=== PATIENT | male | born 1980 | race Caucasian/White ===

== ENCOUNTER → 2021-09-15 16:02 | Outpatient (BNVA) | payer OTHER, SELFPAY | PROVIDERS: Visit Provider Nurse Practitioner Family | DX: J45.909 Unspecified asthma, uncomplicated (principal); M79.89 Other specified soft tissue disorders; R06.02 Shortness of breath; G47.10 Hypersomnia, unspecified; R06.83 Snoring | CPT/HCPCS: 71046; 80053; 80061; 84443; 85025 ==

== ENCOUNTER → 2021-10-10 09:07 | Outpatient (BNVA) | payer OTHER, SELFPAY | PROVIDERS: PCP Family Medicine; Visit Provider Family Medicine | DX: I10 Essential (primary) hypertension (principal); R73.09 Other abnormal glucose; R60.9 Edema, unspecified; F19.939 Other psychoactive substance use, unspecified with withdrawal, unspecified; F41.9 Anxiety disorder, unspecified | CPT/HCPCS: 80048; 83036 ==

== ENCOUNTER → 2022-02-12 12:30 | Outpatient (BNVA) | payer OTHER, SELFPAY | PROVIDERS: PCP Family Medicine; Visit Provider Family Medicine | DX: R53.83 Other fatigue (principal); F41.9 Anxiety disorder, unspecified | CPT/HCPCS: 82607; 84403; 84443 ==

== ENCOUNTER → 2022-03-09 14:07 | Outpatient (BNVA) | payer OTHER, SELFPAY | PROVIDERS: PCP Family Medicine; Visit Provider Family Medicine | DX: M79.671 Pain in right foot (principal); M79.672 Pain in left foot | CPT/HCPCS: 73650 ==

== ENCOUNTER → 2022-08-31 11:50 | Outpatient (BNVA) | payer SELFPAY | PROVIDERS: PCP Family Medicine; Visit Provider Family Medicine | DX: R79.89 Other specified abnormal findings of blood chemistry (principal); I10 Essential (primary) hypertension; F41.9 Anxiety disorder, unspecified | CPT/HCPCS: 80053; 80061; 84403; 84443; 85025 ==

== ENCOUNTER → 2023-02-19 09:33 | Outpatient (BNVA) | payer OTHER, SELFPAY | PROVIDERS: PCP Family Medicine; Visit Provider Nurse Practitioner Family | DX: M54.50 Low back pain, unspecified (principal) | CPT/HCPCS: 72100 ==

== ENCOUNTER 2024-05-12 16:08 | Inpatient (IN) | payer OTHER, BC, MEDICAID, SELFPAY ==
[2024-05-12 16:09] VITALS: BP 145/94; PULSE 106; RESP 16; TEMP 36.7; O2SAT 96; BMI 38.0
--- NOTE | 2024-05-12 16:12 | ECG_ITS ---
[facility] Test Date: 2024-05-12 Pat Name: Thompson Durbin Department: Room: Gender: Male Woods Boss: : 1980 Requested By: Aaron Coto Order Number: [id number] Pascual MD: PASCUAL GARCIA Measurements Intervals [place] Rate: 93 P: 7 AR: 171 QRS: -13 QRSD: 77 T: 14 QT: 323 QTc: 404 Interpretive Statements SINUS RHYTHM LOW QRS VOLTAGE IN PRECORDIAL LEADS [QRS DEFLECTION < 1.0 mV IN CHEST LEADS] POSSIBLE RIGHT VENTRICULAR CONDUCTION DELAY [RSR (QR) IN V1/V2] POSSIBLE INFERIOR MYOCARDIAL INFARCTION , PROBABLY OLD [30 ms Q WAVE IN II/aVF] No previous ECG available for comparison Electronically Signed On 05-21-2024 21:38:08 CDT by PASCUAL GARCIA [email or web address]
[2024-05-12 16:31] LABS: Bacteria Urine None Seen /hpf; Hyaline Casts Urine 0-4 /lpf; RBC Urine 0-2 /hpf (0-2); Squamous Epithelial Cell Urine 0-5 /hpf (0-5); WBC Urine 0-5 /hpf (0-5)
[2024-05-12 16:35] LABS: Basophils % 0.5 %; Eosinophils # 0.7 10^3/uL (0.0-0.8); Hematocrit 42.9 % (37-53); Lymphocytes # 1.7 10^3/uL (0.8-4.8); Lymphocytes % 28.6 %; Mean Corpuscular HGB Conc 33.6 g/dL (30-55); Mean Corpuscular Volume 92.5 fl (82-101); Mean Platelet Volume 10.6 fL (7.4-10.4); Monocytes # 0.4 10^3/uL (0.2-0.9); Monocytes % 6.9 %; Neutrophils # 3.05 10^3/uL (1.8-7.7); Neutrophils % 51.7 %; Nucleated Red Blood Cells % 0 %; Platelet Count 169 10^3/cmm (157-399); Red Blood Count 4.64 10^6/uL (3.85-5.65); Red Cell Distribution Width 12.3 % (12.1-15.1); White Blood Count 5.91 10^3/uL (3.29-11.43)
--- NOTE | 2024-05-12 16:37 | PC.NURSE ---
96 hour hold rights read and reviewed with patient. Aaron from security present during reading of rights. Patient verbalized understandings and copy of rights given to patient.
[2024-05-12 16:45] LABS: Add Urine Microscopic? YES; Bilirubin Urine Neg (Negative); Blood Urine Trace (Negative); Glucose Urine UA Norm (Normal); Ketones Urine Negative (Negative); Leukocyte Esterase Urine Negative (Negative); Nitrate Urine Negative (Negative); Protein Urine Neg (Negative); Specific Gravity, Urine 1.005 (1.005-1.030); Urine Appearance Clear (CLEAR); Urine Color Yellow (Yellow); Urobilinogen Urine Neg (Negative); pH Urine 6.5 (5-7)
[2024-05-12 16:46] LABS: Amphetamines Screen Urine Negative (Negative); Barbiturates Screen Urine Negative (Negative); Benzodiazepines Screen Urine Positive (Negative); Cocaine Screen Urine Negative (Negative); Opiate Screen Urine Negative (Negative); PCP Screen Urine Negative (Negative); THC Screen Urine Negative (Negative)
[2024-05-12 17:01] LABS: Alanine Aminotransferase 26 U/L (0-41); Albumin Level 4.1 g/dL (3.5-5.2); Alkaline Phosphatase 68 U/L (40-130); Anion Gap 14.7 (5-19); Aspartate Amino Transferase 20 U/L (0-40); Blood Urea Nitrogen 7 mg/dL (6-20); Calcium 8.5 mg/dL (8.5-10.5); Carbon Dioxide 28 mmol/L (22-29); Chloride 103 mmol/L (98-107); Creatinine Clr Calc Pharmacy 129.3321; Globulin 3.1 g/dL (1.3-4.6); Glomerular Filtration Rate 92.1 mL/min (90-130); Glucose 136 mg/dL (65-115); Osmolality Calculated 294 mOsm/kg (285-295); Potassium 3.7 mmol/L (3.5-5.1); Sodium 142 mmol/L (136-145); Thyroid Stimulating Hormone 1.44 uIU/mL (0.27-4.20); Total Bilirubin 0.3 mg/dL (0.15-1.2); Total Protein 7.2 g/dL (6.6-8.7)
[2024-05-12 17:02] LABS: Acetaminophen < 5.0 ug/mL (10-30); Alcohol Level < 10 mg/dL (0-10); Salicylate < 0.3 mg/dL (3-10)
--- NOTE | 2024-05-12 17:03 | W.ED.PSYCHS ---
HPI - Psych General: Chief Complaint: Psychiatric Symptoms Stated Complaint: 96 History of Present Illness: 44-year-old male brought in on a 96-hour hold. Affidavit and support of application for assisted was filled out by Kanika Rubalcava APRN. She was mental health provider for the patient. There is a long affidavit which can be reference. Some highlights of the affidavit include I want to blow my head off. On 05/10/2024. Comment about a coworker ' respondent was an employee at local [employer], to which she recently walked out during his shift to never returned after what he endorsed is a significant event of conflict, to which staff members explain was a simple question answered moment. 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 ' Patient reportedly messaged CUSTOMER CARE VOICE CONSULTANT 14 messages today alone. CUSTOMER CARE VOICE CONSULTANT reports concern for 'his safety, the safety of [id number] children in the home, and the safety of others in the community.' Patient has allegedly had multiple substance in his urine drug screen in February as well as an absence of the Suboxone for which she was supposed to be taking and was prescribed. Patient had also reported he stopped his antidepressant and PTSD medication weeks ago. Patient tells me he stopped them just 2 days ago. Patient denies any drug use recently. Affidavit reports recent positive MDMA and cocaine in February. Patient denies alcohol abuse. Patient reports he sent all these messages because he was feeling manic . Patient currently denies suicidal ideation or homicidal ideation. He says that all of these comments were intrusive thoughts but not something he intended to act on. Associated symptoms: Reports depression; Deny auditory hallucinations, visual hallucinations, homicidal ideation or suicidal ideation Related Data Home Medications ?Medication ?Instructions ?Recorded ?Confirmed buprenorphine HCl 8 mg sublingual ea sublingual 08/31/22 09/01/23 tablet Previous Rx's ?Medication ?Instructions ?Recorded ondansetron 4 mg disintegrating 4 mg PO Q8H #20 tabs 01/28/23 tablet albuterol sulfate 90 mcg/actuation 2 puff inhalation Q6H PRN 04/30/23 aerosol inhaler shortness of breath or wheezing #8.5 grams lisinopril 30 mg tablet See Rx Instructions .Route 05/28/23 .COMPLEX #30 tabs omeprazole 40 mg capsule,delayed 40 mg PO DAILY #30 caps 05/28/23 release potassium chloride 10 mEq See Rx Instructions .Route 05/28/23 capsule,extended release .COMPLEX #30 caps testosterone cypionate 200 mg/mL 200 mg SUBCUT .monthly #1 mL 05/28/23 intramuscular oil (Depo-Testosterone) venlafaxine 75 mg capsule,extended 75 mg PO QAM #30 caps 07/23/23 release 24 hr (Effexor XR) diazepam 10 mg tablet (Valium) 10 mg PO BID PRN anxiety #60 tabs 10/07/23 furosemide 80 mg tablet 80 mg PO QAM #30 tabs 10/07/23 rizatriptan 10 mg tablet (Maxalt) 10 mg PO ONCE PRN migraine 10/07/23 headache #14 tabs diclofenac sodium 75 mg See Rx Instructions .Route 02/02/24 tablet,delayed release .COMPLEX #60 tabs metoprolol tartrate 100 mg tablet See Rx Instructions .Route 02/02/24 .COMPLEX #30 tabs Allergies Allergy/AdvReac Type Severity Reaction Status Date / Time bupropion (From Wellbutrin) Allergy Severe ADR-Seizure Verified 03/15/23 10:36 Review of Systems General: Reports: 10 or more systems reviewed and unremarkable except in HPI and below Const: Denies: fever(s), chills or body aches Eyes: Denies: change in vision ENMT: Denies: throat pain Card: Denies: chest pain, edema or syncope Resp: Denies: dyspnea or productive cough GI: Denies: abdominal pain, nausea, vomiting or diarrhea : Denies: flank pain, dysuria or urinary frequency Musc: Denies: neck pain, back pain, extremity pain or extremity swelling Skin/Breast: Denies: rash or erythema Neuro: Denies: headache(s), numbness in extremities, weakness in extremities, lack of coordination or difficulty walking Psych: Reports: anxiety, depression, mood swings and irritability; Denies: visual hallucinations, auditory hallucinations, tactile hallucinations, suicidal ideation or homicidal ideation PFSH ED PFSH: Medical History History of asthma Surgical History Hx of hand surgery left Social History Smoking and tobacco/nicotine status: current every day tobacco/nicotine user Second hand smoke exposure: No Alcohol intake: never Substance/Drug Use: never Adopted: No Caregiver/support person: No Lives independently: Yes Household members: family Housing: House Marital status: Single Number of children: 0 Highest education level completed: 9th Grade service: No Current occupational status: employed Physical Exam Const: COMMON NORMALS: no limitations, alert and well nourished EXAM LIMITATIONS: no altered mental status HENMT: COMMON NORMALS: normocephalic, atraumatic and external ears normal HEAD & SCALP: normocephalic and atraumatic EXTERNAL EAR: Yes external ears normal MOUTH: no muffled voice Eye: COMMON NORMALS: EOMs intact bilaterally, conjunctivae normal and no scleral icterus CONJUNCTIVA: Yes conjunctivae normal Neck/C-Spine: COMMON NORMALS: no JVD GENERAL: Yes normal visual inspection and Yes trachea midline Resp: COMMON NORMALS: normal respiratory effort, No use of accessory muscles and clear to auscultation bilaterally AUSCULTATION: clear to auscultation bilaterally Cardio: COMMON NORMALS: no JVD, regular rate and regular rhythm RATE: regular rate RHYTHM: regular rhythm Extremity: COMMON NORMALS: normal to inspection Neuro: COMMON NORMALS: moves all extremities, no focal motor deficits and no sensory deficits noted SENSORIUM/ORIENTATION: Yes alert SPEECH: speech normal Psych: COMMON NORMALS: mental status grossly normal, Normal thought process present, cooperative, normal affect, speech normal, denies hallucinations, denies homicidal ideation and denies suicidal ideation SPEECH: Yes normal speech THOUGHT PROCESS: Normal thought process present Skin: COMMON NORMALS: no rashes or lesions noted, turgor normal and no jaundice GENERAL SKIN EXAM: no rashes or lesions noted and turgor normal Course Vital Signs: Vital signs: Vital Signs Temperature 98.1 F 05/12/24 16:09 Pulse Rate 106 H 05/12/24 16:09 Respiratory Rate 16 05/12/24 16:09 Blood Pressure 145/94 05/12/24 16:09 Pulse Oximetry 96 05/12/24 16:09 Oxygen Delivery Me thod Room Air 05/12/24 16:09 MDM - Psych Medical Decision Making Patient here on a 96-hour hold for evaluation and treatment by psychiatry. The patient has, according to his affidavit, made multiple statements eluding to self-harm. The most recent direct statement was on 05/10/2024 I want to blow my head off . He also made an apparent threat to a coworker. Patient is denying all of this. He says he did send lots of messages to his CUSTOMER CARE VOICE CONSULTANT but cannot remember the exact verbiage. He is denying drug use. He is stating that the CUSTOMER CARE VOICE CONSULTANT is doing this to be vindictive and that she is a personal friend of his coworker at the [employer] where he walked out. He tells me that the medications are making him worse and he stopped them 2 days ago. He evidently told his CUSTOMER CARE VOICE CONSULTANT that he stopped them weeks ago. There seems to be lots of inconsistencies in denial and the patient's story. EKG obtained at 1621. EP interpretation. Sinus rhythm, rate of 93, normal axis, QTc normal, QRS narrow, no concerning ischemic changes or ectopic beats. Medical screening examination was performed and the patient is appropriate for admission to the neuropsychiatric unit. I did discuss with Dr. Khan who accepted. Medical Records I reviewed the patient's medical records. Lab Data I reviewed the patient's lab results. 05/12/24 16:28 05/12/24 16:28 Laboratory Results WBC 5.91 10^3/uL (3.29-11.43) 05/12/24 16: RBC 4.64 10^6/uL (3.85-5.65) 05/12/24 16:28 Hgb 14.40 g/dL (11.27-16.99) 05/12/24 16: Hct 42.9 % (37-53) 05/12/24 16: MCV 92.5 fl (82-101) 05/12/24 16: MCH 31.0 pg (27-33) 05/12/24 16: MCHC 33.6 g/dL (30-55) 05/12/24 16: RDW 12.3 % (12.1-15.1) 05/12/24 16:28 Plt Count 169 10^3/cmm (157-399) 05/12/24 16: MPV 10.6 fL (7.4-10.4) H 05/12/24 16:28 Neut % (Auto) 51.7 % 05/12/24 16: Lymph % (Auto) 28.6 % 05/12/24 16: Sharp % (Auto) 6.9 % 05/12/24 16: Eos % (Auto) 12.0 % 05/12/24 16: Baso % (Auto) 0.5 % 05/12/24 16: Neut # (Auto) 3.05 10^3/uL (1.8-7.7) 05/12/24 16: Lymph # (Auto) 1.7 10^3/uL (0.8-4.8) 05/12/24 16: Sharp # (Auto) 0.4 10^3/uL (0.2-0.9) 05/12/24 16: Eos # (Auto) 0.7 10^3/uL (0.0-0.8) 05/12/24 16: Baso # (Auto) 0.0 10^3/uL (0.0-0.1) 05/12/24 16: Nucleated RBC % (auto) 0 % 05/12/24 16: Nucleated RBCs # 0.0 /100WBC 05/12/24 16: Sodium 142 mmol/L (136-145) 05/12/24 16: Potassium 3.7 mmol/L (3.5-5.1) 05/12/24 16: Chloride 103 mmol/L (98-107) 05/12/24 16: Carbon Dioxide 28 mmol/L (22-29) 05/12/24 16: Anion Gap 14.7 (5-19) 05/12/24 16: BUN 7 mg/dL (6-20) 05/12/24 16: Creatinine 0.9 mg/dL (0.7-1.2) 05/12/24 16: GFR Calculation 92.1 mL/min (90-130) 05/12/24 16: Glucose 136 mg/dL (65-115) H 05/12/24 16: Calculated Osmolality 294 mOsm/kg (285-295) 05/12/24 16: Calcium 8.5 mg/dL (8.5-10.5) 05/12/24 16:28 Total Bilirubin 0.3 mg/dL (0.15-1.2) 05/12/24 16: AST 20 U/L (0-40) 05/12/24 16: ALT 26 U/L (0-41) 05/12/24 16:28 Alkaline Phosphatase 68 U/L (40-130) 05/12/24 16:28 Total Protein 7.2 g/dL (6.6-8.7) 05/12/24 16: Albumin 4.1 g/dL (3.5-5.2) 05/12/24 16: Globulin 3.1 g/dL (1.3-4.6) 05/12/24 16: TSH 1.44 uIU/mL (0.27-4.20) 05/12/24 16:28 Urine Color Yellow (Yellow) 05/12/24 16:22 Urine Appearance Clear (CLEAR) 05/12/24 16:22 Urine pH 6.5 (5-7) 05/12/24 16:22 Ur Specific [place] 1.005 (1.005-1.030) 05/12/24 16:22 Urine Protein Neg (Negative) 05/12/24 16:22 Urine Glucose (UA) Norm (Normal) 05/12/24 16:22 Urine Ketones Negative (Negative) 05/12/24 16:22 Urine Blood Trace (Negative) H 05/12/24 16:22 Urine Nitrate Negative (Negative) 05/12/24 16:22 Urine Bilirubin Neg (Negative) 05/12/24 16:22 Urine Urobilinogen Neg mg/dL (Negative) 05/12/24 16:22 Ur Leukocyte Esterase Negative (Negative) 05/12/24 16:22 Urine RBC 0-2 /hpf (0-2) 05/12/24 16:22 Urine WBC 0-5 /hpf (0-5) 05/12/24 16:22 Ur Squamous Epith Cells 0-5 /hpf (0-5) 05/12/24 16:22 Amorphous Sediment Not Reportable 05/12/24 16:22 Urine Bacteria None seen /hpf (NONE) 05/12/24 16:22 Hyaline Casts 0-4 /lpf H 05/12/24 16:22 Salicylates < 0.3 mg/dL (3-10) L 05/12/24 16:28 Urine Opiates Screen Negative ng/mL (Negative) 05/12/24 16:22 Acetaminophen < 5.0 ug/mL (10-30) L 05/12/24 16:28 Ur Barbiturates Screen Negative ng/mL (Negative) 05/12/24 16:22 Ur Phencyclidine Scrn Negative ng/mL (Negative) 05/12/24 16:22 Ur Amphetamines Screen Negative ng/mL (Negative) 05/12/24 16:22 U Benzodiazepines Scrn Positive ng/mL (Negative) H 05/12/24 16:22 Urine Cocaine Screen Negative ng/mL (Negative) 05/12/24 16:22 U Marijuana (THC) Screen Negative ng/mL (Negative) 05/12/24 16:22 Ethyl Alcohol < 10 mg/dL (0-10) 05/12/24 16:28 No radiology studies performed this visit Discharge Plan Discharge Patient Disposition: Admitted As Inpatient Clinical Impression: Verbalizes suicidal thoughts Condition: Stable Prescriptions: No Action ondansetron 4 mg tablet,disintegrating 4 mg PO Q8H Qty: 20 0RF lisinopril 30 mg tablet See Rx Instructions .ROUTE .COMPLEX Qty: 30 5RF Dose Instruction: TAKE ONE TABLET BY MOUTH DAILY Rx Instructions: TAKE ONE TABLET BY MOUTH DAILY omeprazole 40 mg capsule,delayed release(DR/EC) 40 mg PO DAILY Qty: 30 5RF testosterone cypionate [Depo-Testosterone] 200 mg/mL oil 200 mg SUBCUT .monthly Qty: 1 3RF buprenorphine HCl 8 mg tablet, sublingual sublingual albuterol sulfate 90 mcg/actuation HFA aerosol inhaler 2 puff inhalation Q6H PRN (Reason: shortness of breath or wheezing) Qty: 8.5 3RF potassium chloride 10 mEq capsule, extended release See Rx Instructions .ROUTE .COMPLEX Qty: 30 3RF Dose Instruction: TAKE ONE TABLET BY MOUTH DAILY Rx Instructions: TAKE ONE TABLET BY MOUTH DAILY venlafaxine [Effexor XR] 75 mg capsule,extended release 24hr 75 mg PO QAM Qty: 30 2RF rizatriptan [Maxalt] 10 mg tablet 10 mg PO ONCE PRN (Reason: migraine headache) Qty: 14 0RF Rx Instructions: one tab prn headache, may repeat in 2 hours, max 2 in 24 hours. diazepam [Valium] 10 mg tablet 10 mg PO BID PRN (Reason: anxiety) Qty: 60 1RF Rx Instructions: will need f/u with Dr. Sher furosemide 80 mg tablet 80 mg PO QAM Qty: 30 3RF metoprolol tartrate 100 mg tablet See Rx Instructions .ROUTE .COMPLEX Qty: 30 0RF Dose Instruction: TAKE ONE TABLET BY MOUTH DAILY Rx Instructions: TAKE ONE TABLET BY MOUTH DAILY diclofenac sodium 75 mg tablet,delayed release (DR/EC) See Rx Instructions .ROUTE .COMPLEX Qty: 60 0RF Dose Instruction: TAKE ONE TABLET BY MOUTH TWICE DAILY Rx Instructions: TAKE ONE TABLET BY MOUTH TWICE DAILY Referrals: Lauren Sher MD [Primary Care Provider] - Print Language: Citizen [place] Coding Level of Care Code ED Burglary Investigator for Estella Spangler
[2024-05-12 19:44] VITALS: BP 138/91; PULSE 98; RESP 16; O2SAT 97
[2024-05-12 19:47] VITALS: BP 138/91; PULSE 98; RESP 16; O2SAT 97
[2024-05-12 20:26] VITALS: BP 146/89; PULSE 93; RESP 18; TEMP 36.5; O2SAT 96
[2024-05-12] MEDS: trazodone 50 mg Tablet PO (20:56)
[2024-05-12] MEDS: hyDROXYzine 25 mg Capsule 50 MG PO (20:56)
[2024-05-12] MEDS: nicotine 4 mg lozenge MUCOUS MEM (20:56)
--- NOTE | 2024-05-12 21:28 | PC.NURSE ---
Admission note: Pt. was brought in by Police on a 96 hr hold. FORESTRY EXTENSION SPECIALIST had filled out an affidavit saying the pt. made a comment that he wants to blow his head off . Also, pt. sent 14 text message to a staff member. Pt. stated he did this because he was manic. In February pt. tested positive for MDMA and cocaine, but pt. states the last time he did cocaine was in 2019 after his mother . Pt. said it was because of his Dr. that he brought in [facility]. 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 and he left on bad terms and he believes this is why this happened. He stated he has informed the Dr. that he did not like the way the medication was making him feel and so he stopped taking it. Pt. is calm and cooperative currently. Pt. says he does have invasive thoughts and that is why he needs medication. Pt. speech is slow/delayed and pt. states he has brain fog. Pt. is not able to stay focused on the questions being asked, but goes off on a story. Pt. was given Trazadone and Vistaril to help with anxiety and sleep, also given a Nicotine Lozenge. Pt. orientated to the his room, bathroom and the dayroom.
[2024-05-12 21:38] VITALS: BP 109/66; PULSE 66; RESP 18; TEMP 36.5; O2SAT 94
--- NOTE | 2024-05-13 00:04 | PC.NURSE ---
Pt. sitting on edge of bed leaned over snoring.
--- NOTE | 2024-05-13 02:03 | PC.NURSE ---
at 0200 rounds pt. is still sitting up on the side of the bed leaned forward sleeping. DRYCLEANER stated pt. was like this during her rounds as well.
[2024-05-13] MEDS: nicotine 4 mg lozenge MUCOUS MEM ×7 (02:45→20:07)
[2024-05-13 06:00] VITALS: BP 141/91; PULSE 75; RESP 18; TEMP 36.3; O2SAT 100
[2024-05-13] MEDS: pantoprazole DR 40 mg Tablet PO (07:59)
[2024-05-13] MEDS: venlafaxine ER (24HR) 75 mg Capsule PO (07:59)
[2024-05-13] MEDS: FUROsemide 40 mg Tablet 80 MG PO (07:59)
--- NOTE | 2024-05-13 08:51 | P.NPUHP_ITS ---
Providers/Chief Complaint 2 Admitting Physician: Ariel Khan MD Primary Care Provider: Lauren Sher MD Chief Complaint: 96 HPI NPU History of Present Illness Thompson Durbin is a 44 year old male who presented to the emergency department with the following report: Chief Complaint: Psychiatric Symptoms Stated Complaint: 96 History of Present Illness: 44-year-old male brought in on a 96-hour hold. Affidavit and support of application for fdc was filled out by Kanika Rubalcava APRN. She was mental health provider for the patient. There is a long affidavit which can be reference. Some highlights of the affidavit include I want to blow my head off. On 05/10/2024. 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 ' Patient reportedly messaged AUTOMATION MACHINE BUILDER 14 messages today alone. AUTOMATION MACHINE BUILDER reports concern for 'his safety, the safety of [id number]'s children in the home, and the safety of others in the community.' Patient has allegedly had multiple substance in his urine drug screen in February as well as an absence of the Suboxone for which she was supposed to be taking and was prescribed. Patient had also reported he stopped his antidepressant and PTSD medication weeks ago. Patient tells me he stopped them just 2 days ago. Patient denies any drug use recently. Affidavit reports recent positive MDMA and cocaine in February. Patient denies alcohol abuse. Patient reports he sent all these messages because he was feeling manic . Patient currently denies suicidal ideation or homicidal ideation. He says that all of these comments were intrusive thoughts but not something he intended to act on. Associated symptoms: Reports depression; Deny auditory hallucinations, visual hallucinations, homicidal ideation or suicidal ideation. He was admitted to the neuropsychiatric unit for definitive treatment of those issues. He has a history of outpatient follow-up at [facility] with primary care but not with psychiatry. No inpatient services here. He reports currently having services with a provider but was not certain of the medications. Resources we have suggest that he is on extended release Effexor 75 mg and other than that takes Suboxone for agonist treatment. He presented today reporting: Chief complaint Admitted to the hospital following a dispute with a doctor over psychiatric medications, leading to police involvement after expressing suicidal thoughts. History of the present complaint The patient reports a history of mental health issues beginning at the age of 20 when first diagnosed with bipolar disorder. During this time, the patient experienced periods of depression characterized by feelings of helplessness, hopelessness, and worthlessness, as well as low mood. The patient also recalls having suicidal thoughts and made an attempt to shoot themselves, which was interrupted by their girlfriend. This incident was described as eye-opening, revealing the consequences of their actions. The patient has experienced other suicidal episodes throughout their life, though the last attempt was at the age of 20. The patient describes a history of manic episodes, particularly during their late teenage years and into their mid-30s. These episodes were marked by periods of feeling on top of the world, invincible, and engaging in uncharacteristic behaviors. The frequency of these episodes has decreased with age. The patient also reports experiencing anxiety, which can manifest as a physical illness, causing symptoms such as nausea and a sensation similar to having consumed too much caffeine. Anxiety can be triggered or appear without warning, and at times, it includes social anxiety, making it difficult to attend public events. The patient has a history of substance use, including methamphetamines, opiates, and alcohol. They began using tobacco products at the age of [age], introduced by their sister, and have since primarily vaped. The patient started drinking alcohol in their early teens and stopped on September 04, 2019, following a DUI incident. Marijuana use began in 1997 but was discontinued after it started causing anxiety. The patient has attended drug rehabilitation programs twice, completing them both, with the last attendance being 2-3 years ago. The patient has been on numerous psychiatric medications throughout their life, including Zoloft and diazepam, which they have cycled through with different providers. The patient expresses frustration with the frequent changes in medication and the impact on their mental health, noting that certain medications, particularly those affecting brain chemistry, have led to suicidal thoughts. The patient is currently taking psychiatric medications, one for a little over a month and another for a few weeks, but cannot recall their names. Family history includes mental health issues on both sides, with addiction issues present on the paternal side. The patient reports no family history of suicide attempts or deaths by suicide. The patient recalls a good childhood with no neglect or abuse and has always lived with their mother. Educationally, the patient did not complete high school, reaching only the 11th grade, and has not obtained a GED or any additional training. The patient identifies as heterosexual and has had a long-term relationship lasting 15 years. Currently, the patient is not working and lives with a [id number], sharing bills and responsibilities. Mental health history Diagnosed with bipolar disorder at 20 years old. Experienced periods of depression, feelings of helplessness, hopelessness, and worthlessness, with suicidal ideation at that time. Attempted suicide at 20 by attempting to shoot self, but was stopped by a girlfriend. Has been on various psychiatric medications over the years, including Zoloft and diazepam, with frequent changes in medication due to provider preferences. Reports that medications affecting brain chemistry induce suicidal thoughts. Hospitalized once in a psychiatric facility following the of mother in 2016. Has a history of anxiety, described as a physical illness with symptoms like nausea and jitteriness. Experienced manic episodes more frequently in younger years, with decreased frequency by mid-30s. No history of self-injurious behavior. Reports intrusive thoughts but no compulsive behaviors. Family history of mental health issues on both maternal and paternal sides. No family history of suicide attempts or deaths by suicide. Social history Currently unemployed and living with a [id number] as a roommate, sharing bills. Previously worked at [employer] and [employer] simultaneously for about 10 years. Has a dog, approximately four years old, described as brindle, white, and black. Uses tobacco, primarily vaping, and started using nicotine products at age [age]. Stopped drinking alcohol on September 04, 2019, after receiving a DUI. Previously used cannabis, methamphetamines, and opiates, with the last rehab completed 2-3 years ago. No current alcohol or drug use. Did not graduate high school and has not obtained a GED. Identifies as heterosexual and has had a [id number] relationship. No biological children. No service. No orthodox belief system mentioned. Meds NPU Home Medications ?Medication ?Instructions ?Recorded ?Confirmed ?Last Taken ?Type buprenorphine HCl 8 mg sublingual 8 mg sublingual 2XD 08/31/22 05/12/24 Unknown History tablet omeprazole 40 mg capsule,delayed 40 mg PO DAILY #30 ca ps 05/28/23 05/12/24 Unknown Rx release testosterone cypionate 200 mg/mL 200 mg SUBCUT .monthl y #1 mL 05/28/23 05/12/24 Unknown Rx intramuscular oil (Depo-Testosterone) venlafaxine 75 mg capsule,extended 75 mg PO QAM #30 ca ps 07/23/23 05/12/24 Unknown Rx release 24 hr (Effexor XR) furosemide 80 mg tablet 80 mg PO QAM #30 tabs 05/12/24 Unknown Rx metoprolol tartrate 100 mg tablet See Rx Instructions .Route 02/02/24 05/12/24 Unknown Rx .COMPLEX #30 tabs Allergies Allergy/AdvReac Type Severity Reaction Status Date / Time bupropion (From Wellbutrin) Allergy Severe ADR-Seizure Verified 03/15/23 10:36 PFSH NPU 2 PFSH: Medical History History of asthma Surgical History Hx of hand surgery left Social History Smoking and tobacco/nicotine status: current every day tobacco/nicotine user Second hand smoke exposure: No Alcohol intake: never Substance/Drug Use: never Adopted: No Caregiver/support person: No Lives independently: Yes Household members: family Housing: House Marital status: Single Number of children: 0 Highest education level completed: 9th Grade service: No Current occupational status: employed Mental Status Exam 2 MSE Comments: This is obese white male in hospital scrubs with limited grooming and eye contact. No abnormal movements except for psychomotor retardation. Cooperative with exam and mild to moderate distress. Speech was decreased rate and volume. Mood described as depressed, affect congruent. Thought process organized. Thought content: Patient endorsed some suicidal ideation but denied homicidal ideation, there were no delusions noted but reports of paranoia, he denied current auditory or visual hallucinations. Reports having suicidal thoughts when taking certain medications, specifically SSRIs and psychoactive medications, which led to hospitalization. Previously attempted suicide at age 20 by trying to shoot himself, but was stopped by his girlfriend. No current thoughts to hurt or kill anyone else. Experiences anxiety, described as a physical illness that can come on suddenly or be triggered, sometimes making him feel like he has had too much caffeine. Diagnosed with bipolar disorder at age 20, with periods of depression, feelings of helplessness, hopelessness, and worthlessness. Describes current mood as confused, believes mood would be better if at home. Stressors include waiting for mail, phone calls about food assistance, and job applications.Attention and concentration were limited and memory was mostly reliable but no more formally tested. He is alert and oriented times person and place. Insight, judgment and impulse control were limited versus impaired. Vitals/I&O/Wt Last Vital Signs Temp 97.4 F L 05/13/24 06:00 Pulse 75 05/13/24 06:00 Resp 18 05/13/24 06:00 BP 141/91 05/13/24 06:00 Pulse Ox 100 05/13/24 06:00 O2 Del Method Room Air 05/12/24 21:10 Weight last 48 hrs Weight 113.398 kg Data NPU 05/12/24 16:28 05/12/24 16:28 A&P Assessment and plan (1) Bipolar depression: (2) Anxiety: (3) Verbalizes suicidal thoughts: Plan This is a 44-year-old white male with a long history of mental health and addiction issues with endorsement of trauma with genetic loading for mental health and addiction issues who presents with concerns for suicidal thought. He reports Bipolar disorder, initially diagnosed at age 20, with a history of depressive and manic episodes. Current medication regimen includes Zoloft and diazepam, with a history of multiple medication trials. Reports of suicidal ideation associated with certain psychiatric medications. History of substance use, including methamphetamines and opiates, with previous rehabilitation efforts. Anxiety symptoms present, with occasional intrusive thoughts. No current suicidal ideation or psychotic symptoms reported. 1. Continues current medication. 2. Continue every 15 minute checks for safety. 3. Encourage individual, group and milieu therapies. 4. Encourage sober living treatment after discharge at the highest level of care to which he is willing to commit. 5. Get collateral information. 6. Evaluate against the backdrop of the 96-hour hold. PDMP PDMP Reviewed: Not Reviewed Involuntary Hold Information 2 Hold Status: Legal Status: 96 Hour Hold Date/Time Hold Expires: 05/18/24 @1620 Attestations NPU 2 Medical Necessity Statement*: Inpatient hospitalization is medically necessary and the clinically appropriate intervention at this time. We will monitor/initiate medications and make changes as indicated. He will be in the hospital for over 2 midnights. Likely length of stay 4 to 7 days. Coding Level of Care Code Acute Code for Chg Fwd Diagnoses Bipolar depression F31.9 Anxiety F41.9 Verbalizes suicidal thoughts R45.851
[2024-05-13] MEDS: diazePAM 5 mg Tablet PO (08:55)
[2024-05-13] MEDS: buprenorphine-naloxone 4-1 mg Film 2 EACH SUBLINGUAL ×2 (08:56→17:44)
[2024-05-13] MEDS: metoprolol tartrate 50 mg Tablet 100 MG PO (08:56)
[2024-05-13 14:00] VITALS: BP 155/94; PULSE 86; RESP 16; TEMP 36.7; O2SAT 91
[2024-05-13] MEDS: acetaminophen 325 mg Tablet 650 MG PO (17:44)
[2024-05-13] MEDS: hyDROXYzine 25 mg Capsule 50 MG PO (20:10)
[2024-05-13 20:12] VITALS: BP 133/87; PULSE 84; RESP 18; TEMP 36.4; O2SAT 96
[2024-05-14] MEDS: nicotine 4 mg lozenge MUCOUS MEM ×7 (04:03→19:52)
[2024-05-14 06:00] VITALS: BP 135/94; PULSE 79; RESP 17; TEMP 36.7; O2SAT 93
[2024-05-14] MEDS: FUROsemide 40 mg Tablet 80 MG PO (06:29)
[2024-05-14] MEDS: venlafaxine ER (24HR) 75 mg Capsule PO (06:30)
--- NOTE | 2024-05-14 07:35 | P.NPUPN_ITS ---
Subjective NPU 2 Subjective: Patient presented today reporting that he is doing okay. He was wondering about what his length of stay might look like. We discussed the importance of focusing on getting him well first and the time he will be here will take care of itself. We discussed the risks, benefits and alternatives of increasing the Effexor XR and he understood and agreed to consider it and proceed as is documented in this note. He denied any side effects to his medication. Mental Status Exam 2 MSE Comments: This is obese white male in hospital scrubs with limited grooming and eye contact. No abnormal movements except for psychomotor retardation. Cooperative with exam and mild to moderate distress. Speech was decreased rate and volume. Mood described as depressed, affect congruent. Thought process organized. Thought content: Patient endorsed some suicidal ideation but denied homicidal ideation, there were no delusions noted but reports of paranoia, he denied current auditory or visual hallucinations. Reports having suicidal thoughts when taking certain medications, specifically SSRIs and psychoactive medications, which led to hospitalization. Previously attempted suicide at age 20 by trying to shoot himself, but was stopped by his girlfriend. No current thoughts to hurt or kill anyone else. Experiences anxiety, described as a physical illness that can come on suddenly or be triggered, sometimes making him feel like he has had too much caffeine. Diagnosed with bipolar disorder at age 20, with periods of depression, feelings of helplessness, hopelessness, and worthlessness. Describes current mood as confused, believes mood would be better if at home. Stressors include waiting for mail, phone calls about food assistance, and job applications.Attention and concentration were limited and memory was mostly reliable but no more formally tested. He is alert and oriented times person and place. Insight, judgment and impulse control were limited versus impaired. Vitals/I&O/Wt Last Vital Signs Temp 98.0 F 05/14/24 06:00 Pulse 79 05/14/24 06:00 Resp 17 05/14/24 06:00 BP 135/94 05/14/24 06:00 Pulse Ox 93 05/14/24 06:00 O2 Del Method Room Air 05/13/24 14:00 Weight last 48 hrs Weight 118.115 kg Weight 113.398 kg Data NPU 05/12/24 16:28 05/12/24 16:28 A&P Assessment and plan (1) Bipolar depression: (2) Anxiety: (3) Verbalizes suicidal thoughts: Plan This is a 44-year-old white male with a long history of mental health and addiction issues with endorsement of trauma with genetic loading for mental health and addiction issues who presents with concerns for suicidal thought. He reports Bipolar disorder, initially diagnosed at age 20, with a history of depressive and manic episodes. Current medication regimen includes Zoloft and diazepam, with a history of multiple medication trials. Reports of suicidal ideation associated with certain psychiatric medications. History of substance use, including methamphetamines and opiates, with previous rehabilitation efforts. Anxiety symptoms present, with occasional intrusive thoughts. No current suicidal ideation or psychotic symptoms reported. 1. Continues current medication. 2. Continue every 15 minute checks for safety. 3. Encourage individual, group and milieu therapies. 4. Encourage sober living treatment after discharge at the highest level of care to which he is willing to commit. 5. Get collateral information. 6. Evaluate against the backdrop of the 96-hour hold. PDMP PDMP Reviewed: Not Reviewed Involuntary Hold Information 2 Hold Status: Legal Status: 96 Hour Hold Date/Time Hold Expires: 05/18/24 @1620 Attestations NPU 2 Medical Necessity Statement*: Inpatient hospitalization is medically necessary and the clinically appropriate intervention at this time. We will monitor/initiate medications and make changes as indicated. Likely length of stay 3-5 days. Coding Level of Care Code Acute Code for g Fwd Diagnoses Bipolar depression F31.9 Anxiety F41.9 Verbalizes suicidal thoughts R45.851
[2024-05-14] MEDS: metoprolol tartrate 50 mg Tablet 100 MG PO (07:56)
[2024-05-14] MEDS: buprenorphine-naloxone 4-1 mg Film 2 EACH SUBLINGUAL ×2 (07:56→17:46)
[2024-05-14] MEDS: diazePAM 5 mg Tablet PO (07:57)
[2024-05-14] MEDS: pantoprazole DR 40 mg Tablet PO (07:57)
--- NOTE | 2024-05-14 09:55 | PC.NURSE ---
Morning assessment Patient lethargic during morning assessment. Patient denies suicidal thoughts, AVH, and homicidal thoughts. Patient denies need for anti-anxiety medications
[2024-05-14 14:00] VITALS: BP 143/92; PULSE 72; RESP 18; TEMP 36.6; O2SAT 95
[2024-05-14] MEDS: ibuprofen 600 mg Tablet PO (15:17)
[2024-05-14] MEDS: hyDROXYzine 25 mg Capsule 50 MG PO (17:46)
[2024-05-14 20:15] VITALS: BP 143/86; PULSE 74; RESP 18; TEMP 37.2; O2SAT 94
[2024-05-14] MEDS: OLANZapine 5 mg ODT PO (20:46)
[2024-05-15] MEDS: FUROsemide 40 mg Tablet 80 MG PO (05:23)
[2024-05-15] MEDS: nicotine 4 mg lozenge MUCOUS MEM ×6 (05:23→17:38)
[2024-05-15] MEDS: venlafaxine ER (24HR) 75 mg Capsule PO (05:23)
[2024-05-15 05:53] VITALS: BP 129/86; PULSE 72; RESP 18; O2SAT 92
[2024-05-15] MEDS: diazePAM 5 mg Tablet PO (08:02)
[2024-05-15] MEDS: metoprolol tartrate 50 mg Tablet 100 MG PO (08:02)
[2024-05-15] MEDS: pantoprazole DR 40 mg Tablet PO (08:02)
[2024-05-15] MEDS: buprenorphine-naloxone 4-1 mg Film 2 EACH SUBLINGUAL ×2 (08:03→17:38)
[2024-05-15] MEDS: hyDROXYzine 25 mg Capsule 50 MG PO (12:58)
[2024-05-15 14:00] VITALS: BP 115/80; PULSE 69; RESP 18; TEMP 36.8; O2SAT 93
[2024-05-15] MEDS: OLANZapine 5 mg ODT PO (14:00)
--- NOTE | 2024-05-15 17:19 | W.PM.NPUPNS ---
Subjective NPU Subjective: Patient presented today reporting that he is doing okay. He endorsed that he and the nurse practitioner that he follows had significant conflict. We discussed concerns that they did not have him on more appropriate medications for depression excetra. He reports that he does not know why he is only on Effexor XR at the dose that he is on but he does report that he possibly was on other medications. We discussed the risks, benefits and alternatives of making sure we understand what medications that he may have been taking prior to making any changes and he understood and agreed to proceed as is documented in this note. He denied any side effects of his medication. Mental Status Exam MSE Comments: This is obese white male in hospital scrubs with limited grooming and eye contact. No abnormal movements except for psychomotor retardation. Cooperative with exam and mild to moderate distress. Speech was decreased rate and volume. Mood described as depressed, affect congruent. Thought process organized. Thought content: Patient endorsed some suicidal ideation but denied homicidal ideation, there were no delusions noted but reports of paranoia, he denied current auditory or visual hallucinations. Attention and concentration were limited and memory was mostly reliable but no more formally tested. He is alert and oriented times person and place. Insight, judgment and impulse control were limited versus impaired. Vitals/I&O/Wt Last Vital Signs Temp 98.3 F 05/15/24 14:00 Pulse 69 05/15/24 14:00 Resp 18 05/15/24 14:00 BP 115/80 05/15/24 14:00 Pulse Ox 93 05/15/24 14:00 O2 Del Method Room Air 05/13/24 14:00 Weight last 48 hrs Weight 118.115 kg Data NPU 05/12/24 16:28 05/12/24 16:28 A&P Assessment and plan (1) Bipolar depression: (2) Anxiety: (3) Verbalizes suicidal thoughts: Plan This is a 44-year-old white male with a long history of mental health and addiction issues with endorsement of trauma with genetic loading for mental health and addiction issues who presents with concerns for suicidal thought. He reports Bipolar disorder, initially diagnosed at age 20, with a history of depressive and manic episodes. Current medication regimen includes Zoloft and diazepam, with a history of multiple medication trials. Reports of suicidal ideation associated with certain psychiatric medications. History of substance use, including methamphetamines and opiates, with previous rehabilitation efforts. Anxiety symptoms present, with occasional intrusive thoughts. No current suicidal ideation or psychotic symptoms reported. 1. Continues current medication. 2. Continue every 15 minute checks for safety. 3. Encourage individual, group and milieu therapies. 4. Encourage sober living treatment after discharge at the highest level of care to which he is willing to commit. 5. Get collateral information. 6. Evaluate against the backdrop of the 96-hour hold. PDMP PDMP Reviewed: Not Reviewed Involuntary Hold Information Hold Status: Legal Status: 96 Hour Hold Date/Time Hold Expires: 05/18/2024 @ 1620 Attestations NPU Medical Necessity Statement*: Inpatient hospitalization is medically necessary and the clinically appropriate intervention at this time. We will monitor/initiate medications and make changes as indicated. Likely length of stay 2-4 days. Coding Level of Care Code Acute Code for [facility] Fwd Diagnoses Bipolar depression F31.9 Anxiety F41.9 Verbalizes suicidal thoughts R45.856
[2024-05-15 20:28] VITALS: BP 103/60; PULSE 63; RESP 17; TEMP 36.7; O2SAT 98
[2024-05-16 06:00] VITALS: BP 136/89; PULSE 77; RESP 18; TEMP 36.7
[2024-05-16] MEDS: venlafaxine ER (24HR) 75 mg Capsule PO (06:06)
[2024-05-16] MEDS: FUROsemide 40 mg Tablet 80 MG PO (06:06)
[2024-05-16] MEDS: nicotine 4 mg lozenge MUCOUS MEM ×8 (06:07→21:51)
[2024-05-16] MEDS: buprenorphine-naloxone 4-1 mg Film 2 EACH SUBLINGUAL ×2 (08:09→18:02)
[2024-05-16] MEDS: metoprolol tartrate 50 mg Tablet 100 MG PO (08:09)
[2024-05-16] MEDS: diazePAM 5 mg Tablet PO (08:09)
[2024-05-16] MEDS: pantoprazole DR 40 mg Tablet PO (08:09)
--- NOTE | 2024-05-16 13:25 | P.NPUPN_ITS ---
Subjective NPU 2 Subjective: Patient presented today reporting that he is doing fine. He reports he is excited about the likelihood of discharge tomorrow as he wants to see his dog. He endorsed that he is doing better on the medication and denied any side effects. Mental Status Exam 2 MSE Comments: This is obese white male in hospital scrubs with improved grooming and eye contact. No abnormal movements except for mild psychomotor retardation. Cooperative with exam in no acute distress. Speech was decreased rate and volume. Mood described as depressed, affect congruent. Thought process organized. Thought content: Patient denied suicidal or homicidal ideation, there were no delusions noted but reports resolving paranoia, he denied current auditory or visual hallucinations. Attention and concentration were improving and intact and memory was mostly reliable but no more formally tested. He is alert and oriented times 3. Insight, judgment and impulse control were limited, but improving. Vitals/I&O/Wt Last Vital Signs Temp 98.1 F 05/16/24 06:00 Pulse 77 05/16/24 06:00 Resp 18 05/16/24 06:00 BP 136/89 05/16/24 06:00 Pulse Ox 98 05/15/24 20:28 O2 Del Method Room Air 05/16/24 06:00 O2 Flow Rate 92 05/16/24 06:00 Data NPU 05/12/24 16:28 05/12/24 16:28 A&P Assessment and plan (1) Bipolar depression: (2) Anxiety: (3) Verbalizes suicidal thoughts: Plan This is a 44-year-old white male with a long history of mental health and addiction issues with endorsement of trauma with genetic loading for mental health and addiction issues who presents with concerns for suicidal thought. He reports Bipolar disorder, initially diagnosed at age 20, with a history of depressive and manic episodes. Current medication regimen includes Zoloft and diazepam, with a history of multiple medication trials. Reports of suicidal ideation associated with certain psychiatric medications. History of substance use, including methamphetamines and opiates, with previous rehabilitation efforts. Anxiety symptoms present, with occasional intrusive thoughts. No current suicidal ideation or psychotic symptoms reported. 1. Continues current medication. 2. Continue every 15 minute checks for safety. 3. Encourage individual, group and milieu therapies. 4. Encourage sober living treatment after discharge at the highest level of care to which he is willing to commit. 5. Get collateral information. 6. Evaluate against the backdrop of the 96-hour hold. PDMP PDMP Reviewed: Not Reviewed Involuntary Hold Information 2 Hold Status: Legal Status: 96 Hour Hold Date/Time Hold Expires: 05/18/2024 @ 1620 Attestations NPU 2 Medical Necessity Statement*: Inpatient hospitalization is medically necessary and the clinically appropriate intervention at this time. We will monitor/initiate medications and make changes as indicated. Likely length of stay 1-3 days. Coding Level of Care Code Acute Code for g Fwd Diagnoses Bipolar depression F31.9 Anxiety F41.9 Verbalizes suicidal thoughts R45.856
[2024-05-16 14:00] VITALS: BP 115/79; PULSE 65; RESP 16; TEMP 36.4; O2SAT 96
[2024-05-16 20:06] VITALS: BP 124/86; PULSE 74; RESP 18; TEMP 36.6; O2SAT 95
[2024-05-16] MEDS: hyDROXYzine 25 mg Capsule 50 MG PO (20:37)
[2024-05-16] MEDS: trazodone 50 mg Tablet PO (20:37)
[2024-05-17 06:00] VITALS: BP 121/81; PULSE 68; RESP 17; TEMP 36.6; O2SAT 95
[2024-05-17] MEDS: nicotine 4 mg lozenge MUCOUS MEM ×6 (06:33→15:52)
[2024-05-17] MEDS: FUROsemide 40 mg Tablet 80 MG PO (06:33)
[2024-05-17] MEDS: venlafaxine ER (24HR) 75 mg Capsule PO (06:33)
[2024-05-17] MEDS: buprenorphine-naloxone 4-1 mg Film 2 EACH SUBLINGUAL (08:09)
[2024-05-17] MEDS: pantoprazole DR 40 mg Tablet PO (08:09)
[2024-05-17] MEDS: diazePAM 5 mg Tablet PO (08:09)
[2024-05-17] MEDS: metoprolol tartrate 50 mg Tablet 100 MG PO (08:09)
[2024-05-17 13:04] VITALS: BP 121/97; PULSE 68; RESP 17; TEMP 36.6; O2SAT 95
--- NOTE | 2024-05-17 13:05 | W.PM.NPUDCS ---
Diagnoses at Discharge Discharge Diagnosis (1) Bipolar depression: Status: Acute (2) Anxiety: Status: Acute (3) Verbalizes suicidal thoughts: Status: Resolved Reason for Visit Reason for Visit: 96 Brief History: History of Present Illness Thompson Durbin is a 44 year old male who presented to the emergency department with the following report: Chief Complaint: Psychiatric Symptoms Stated Complaint: 96HPI History of Present Illness: 44-year-old male brought in on a 96-hour hold. Affidavit and support of application for half-way was filled out by Kanika Rubalcava APRN. She was mental health provider for the patient. There is a long affidavit which can be reference. Some highlights of the affidavit include I want to blow my head off. On 05/10/2024. Comment about a coworker ' respondent was an employee at local [employer], to which she recently walked out during his shift to never returned after what he endorsed is a significant event of conflict, to which staff members explain was a simple question answered moment. 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 ' Patient reportedly messaged TOPOGRAPHY TECHNICIAN 14 messages today alone. TOPOGRAPHY TECHNICIAN reports concern for 'his safety, the safety of icumniq-uc-scg's children in the home, and the safety of others in the community.' Patient has allegedly had multiple substance in his urine drug screen in February as well as an absence of the Suboxone for which she was supposed to be taking and was prescribed. Patient had also reported he stopped his antidepressant and PTSD medication weeks ago. Patient tells me he stopped them just 2 days ago. Patient denies any drug use recently. Affidavit reports recent positive MDMA and cocaine in February. Patient denies alcohol abuse. Patient reports he sent all these messages because he was feeling manic . Patient currently denies suicidal ideation or homicidal ideation. He says that all of these comments were intrusive thoughts but not something he intended to act on. Associated symptoms: Reports depression; Deny auditory hallucinations, visual hallucinations, homicidal ideation or suicidal ideation. He was admitted to the neuropsychiatric unit for definitive treatment of those issues. He has a history of outpatient follow-up at [facility] with primary care but not with psychiatry. No inpatient services here. He reports currently having services with a provider but was not certain of the medications. Resources we have suggest that he is on extended release Effexor 75 mg and other than that takes Suboxone for agonist treatment. He presented today reporting: Chief complaint Admitted to the hospital following a dispute with a doctor over psychiatric medications, leading to police involvement after expressing suicidal thoughts. History of the present complaint The patient reports a history of mental health issues beginning at the age of 20 when first diagnosed with bipolar disorder. During this time, the patient experienced periods of depression characterized by feelings of helplessness, hopelessness, and worthlessness, as well as low mood. The patient also recalls having suicidal thoughts and made an attempt to shoot themselves, which was interrupted by their girlfriend. This incident was described as eye-opening, revealing the consequences of their actions. The patient has experienced other suicidal episodes throughout their life, though the last attempt was at the age of 20. The patient describes a history of manic episodes, particularly during their late teenage years and into their mid-30s. These episodes were marked by periods of feeling on top of the world, invincible, and engaging in uncharacteristic behaviors. The frequency of these episodes has decreased with age. The patient also reports experiencing anxiety, which can manifest as a physical illness, causing symptoms such as nausea and a sensation similar to having consumed too much caffeine. Anxiety can be triggered or appear without warning, and at times, it includes social anxiety, making it difficult to attend public events. The patient has a history of substance use, including methamphetamines, opiates, and alcohol. They began using tobacco products at the age of [age], introduced by their sister, and have since primarily vaped. The patient started drinking alcohol in their early teens and stopped on September 04, 2019, following a DUI incident. Marijuana use began in 1997 but was discontinued after it started causing anxiety. The patient has attended drug rehabilitation programs twice, completing them both, with the last attendance being 2-3 years ago. The patient has been on numerous psychiatric medications throughout their life, including Zoloft and diazepam, which they have cycled through with different providers. The patient expresses frustration with the frequent changes in medication and the impact on their mental health, noting that certain medications, particularly those affecting brain chemistry, have led to suicidal thoughts. The patient is currently taking psychiatric medications, one for a little over a month and another for a few weeks, but cannot recall their names. Family history includes mental health issues on both sides, with addiction issues present on the paternal side. The patient reports no family history of suicide attempts or deaths by suicide. The patient recalls a good childhood with no neglect or abuse and has always lived with their mother. Educationally, the patient did not complete high school, reaching only the 11th grade, and has not obtained a GED or any additional training. The patient identifies as heterosexual and has had a long-term relationship lasting 15 years. Currently, the patient is not working and lives with a [id number]-bya, sharing bills and responsibilities. Mental health history Diagnosed with bipolar disorder at 20 years old. Experienced periods of depression, feelings of helplessness, hopelessness, and worthlessness, with suicidal ideation at that time. Attempted suicide at 20 by attempting to shoot self, but was stopped by a girlfriend. Has been on various psychiatric medications over the years, including Zoloft and diazepam, with frequent changes in medication due to provider preferences. Reports that medications affecting brain chemistry induce suicidal thoughts. Hospitalized once in a psychiatric facility following the of mother in 2016. Has a history of anxiety, described as a physical illness with symptoms like nausea and jitteriness. Experienced manic episodes more frequently in younger years, with decreased frequency by mid-30s. No history of self-injurious behavior. Reports intrusive thoughts but no compulsive behaviors. Family history of mental health issues on both maternal and paternal sides. No family history of suicide attempts or deaths by suicide. Social history Currently unemployed and living with a sjjkrqg-uj-wet as a roommate, sharing bills. Previously worked at [employer] and [employer] simultaneously for about 10 years. Has a dog, approximately four years old, described as brindle, white, and black. Uses tobacco, primarily vaping, and started using nicotine products at age [age]. Stopped drinking alcohol on September 04, 2019, after receiving a DUI. Previously used cannabis, methamphetamines, and opiates, with the last rehab completed 2-3 years ago. No current alcohol or drug use. Did not graduate high school and has not obtained a GED. Identifies as heterosexual and has had a [id number] relationship. No biological children. No service. No rastafarian belief system mentioned. Hospital Course Hospital Course He slowly acclimated to the individual, group and milieu therapies. He presented after making threats and suicidal statements after a conflict with his doctor about his medications which he reports he was just frustrated about how things were going with his medications. He very much downplayed his issues with addiction but the likelihood of concerns was raised by his longtime treatment with benzodiazepines and also being on buprenorphine and often without naloxone. He presented to the hospital and we restarted his medications. He reports that he had not had access to them somehow. He had no difficulty with the medications. His medications being restarted, abstinence from substances as well as the treatment milieu had a positive response. He worked with the social work team to establish appropriate follow-up services and was connected to appropriate community resources. He was able to contract for safety outside of the hospital prior to discharge. During the hospitalization, patient had routine laboratory studies which were within normal limits except for few outliers. Additionally there was a general medical evaluation which was also within normal limits and revealed no new acute processes. At the time of discharge, he denied psychosis or lethality. Mood and anxiety were well managed. Patient endorsed a plan to avoid all drugs of abuse, and agreed to follow-up with the aftercare recommendations of the treatment team. Patient was evaluated and deemed to be absent credible lethality, and achieved maximum benefit from inpatient hospitalization, so he was discharged. Involuntary Hold Information Hold Status: Legal Status: 96 Hour Hold Date/Time Hold Expires: 05/18/2024 @ 1620 Mental Status Exam MSE Comments: This is obese white male in hospital scrubs with improved grooming and eye contact. No abnormal movements except for mild psychomotor retardation. Cooperative with exam in no acute distress. Speech was decreased rate and volume. Mood described as depressed, affect congruent. Thought process organized. Thought content: Patient denied suicidal or homicidal ideation, there were no delusions noted but reports resolving paranoia, he denied current auditory or visual hallucinations. Attention and concentration were improving and intact and memory was mostly reliable but no more formally tested. He is alert and oriented times 3. Insight, judgment and impulse control were limited, but improving. Discharge Data Studies Completed and Pending: Laboratory Results WBC 5.91 10^3/uL (3.2 9-11.43) 05/12/24 16:28 RBC 4.64 10^6/uL (3.8 5-5.65) 05/12/24 16:28 Hgb 14.40 g/dL (11.27 -16.99) 05/12/24 16:28 Hct 42.9 % (37-53) 05/12/24 16: MCV 92.5 fl (82-101) 05/12/24 16: MCH 31.0 pg (27-33) 05/12/24 16: MCHC 33.6 g/dL (30-55) 05/12/24 16: RDW 12.3 % (12.1-15.1 ) 05/12/24 16: Plt Count 169 10^3/cmm (157 -399) 05/12/24 16: MPV 10.6 fL (7.4-10.4 ) H 05/12/24 16: Neut % (Auto) 51.7 % 05/12/24 16: Lymph % (Auto) 28.6 % 05/12/24 16: Stoddard % (Auto) 6.9 % 05/12/24 16: Eos % (Auto) 12.0 % 05/12/24 16: Baso % (Auto) 0.5 % 05/12/24: Neut # (Auto) 3.05 10^3/uL (1.8 -7.7) 05/12/24 16: Lymph # (Auto) 1.7 10^3/uL (0.8- 4.8) 05/12/24 16: Stoddard # (Auto) 0.4 10^3/uL (0.2- 0.9) 05/12/24 16: Eos # (Auto) 0.7 10^3/uL (0.0- 0.8) 05/12/24: Baso # (Auto) 0.0 10^3/uL (0.0- 0.1) 05/12/24 16: Nucleated RBC % (a uto) 0 % 05/12/24 16: Nucleated RBCs # 0.0 /100WBC 05/12/24 16: Sodium 142 mmol/L (136-1 45) 05/12/24 16: Potassium 3.7 mmol/L (3.5-5 .1) 05/12/24 16: Chloride 103 mmol/L (98-10 7) 05/12/24 16: Carbon Dioxide 28 mmol/L (22-29) 05/12/24 16: Anion Gap 14.7 (5-19) 05/12/24 16: BUN 7 mg/dL (6-20) 05/12/24 16: Creatinine 0.9 mg/dL (0.7-1. 2) 05/12/24 16: GFR Calculation 92.1 mL/min (90-1 30) 05/12/24 16: Glucose 136 mg/dL (65-115 ) H 05/12/24 16:28 Calculated Osmolal ity 294 mOsm/kg (285- 295) 05/12/24 16: Calcium 8.5 mg/dL (8.5-10 .5) 05/12/24 16: Total Bilirubin 0.3 mg/dL (0.15-1 .2) 05/12/24 16: AST 20 U/L (0-40) 05/12/24 16: ALT 26 U/L (0-41) 05/12/24 16: Alkaline Phosphata se 68 U/L (40-130) 05/12/24 16: Total Protein 7.2 g/dL (6.6-8.7 ) 05/12/24 16: Albumin 4.1 g/dL (3.5-5.2 ) 05/12/24 16: Globulin 3.1 g/dL (1.3-4.6 ) 05/12/24 16: TSH 1.44 uIU/mL (0.27 -4.20) 05/12/24 16:28 Urine Color Yellow (Yellow) 05/12/24 16:22 Urine Appearance Clear (CLEAR) 05/12/24 16: Urine pH 6.5 (5-7) 05/12/24 16:22 Ur Specific Gravit y 1.005 (1.005-1.0 30) 05/12/24 16:22 Urine Protein Neg (Negative) 05/12/24 16:22 Urine Glucose (UA) Norm (Normal) 05/12/24 16:22 Urine Ketones Negative (Negati ve) 05/12/24 16:22 Urine Blood Trace (Negative) H 05/12/24 16:22 Urine Nitrate Negative (Negati ve) 05/12/24 16:22 Urine Bilirubin Neg (Negative) 05/12/24 16:22 Urine Urobilinogen Neg mg/dL (Negati ve) 05/12/24 16:22 Ur Leukocyte Regina ase Negative (Negati ve) 05/12/24 16:22 Urine RBC 0-2 /hpf (0-2) 05/12/24 16:22 Urine WBC 0-5 /hpf (0-5) 05/12/24 16:22 Ur Squamous Epith Cells 0-5 /hpf (0-5) 05/12/24 16:22 Amorphous Sediment Not Reportable 05/12/24 16:22 Urine Bacteria None seen /hpf (N ONE) 05/12/24 16:22 Hyaline Casts 0-4 /lpf H 05/12/24 16:22 Salicylates < 0.3 mg/dL (3-10 ) L 05/12/24 16:28 Urine Opiates Scre en Negative ng/mL (N egative) 05/12/24 16:22 Acetaminophen < 5.0 ug/mL (10-3 0) L 05/12/24 16:28 Ur Barbiturates Sc reen Negative ng/mL (N egative) 05/12/24 16:22 Ur Phencyclidine S crn Negative ng/mL (N egative) 05/12/24 16:22 Ur Amphetamines Sc reen Negative ng/mL (N egative) 05/12/24 16:22 U Benzodiazepines Scrn Positive ng/mL (N egative) H 05/12/24 16:22 Urine Cocaine Scre en Negative ng/mL (N egative) 05/12/24 16:22 U Marijuana (THC) Screen Negative ng/mL (N egative) 05/12/24 16:22 Ethyl Alcohol < 10 mg/dL (0-10) 05/12/24 16:28 Vitals: Last Vital Signs Temp 97.8 F 05/17/24 13:04 Pulse 68 05/17/24 13:04 Resp 17 05/17/24 13:04 BP 121/97 05/17/24 13:04 Pulse Ox 95 05/17/24 13:04 O2 Del Method Room Air 05/17/24 06:00 O2 Flow Rate 92 05/16/24 06:00 Discharge Plan Discharge Patient Disposition: Home Condition: Stable Prescriptions: New trazodone 50 mg Tablet 50 mg PO BEDTIME PRN (Reason: Sleep) Qty: 30 1RF hydroxyzine pamoate 25 mg Capsule 50 mg PO Q6H PRN (Reason: Anxiety) 30 Days Qty: 120 1RF Continued omeprazole 40 mg capsule,delayed release(DR/EC) 40 mg PO DAILY Qty: 30 5RF testosterone cypionate [Depo-Testosterone] 200 mg/mL oil 200 mg SUBCUT .monthly Qty: 1 3RF buprenorphine HCl 8 mg tablet, sublingual 8 mg sublingual 2XD venlafaxine [Effexor XR] 75 mg capsule,extended release 24hr 75 mg PO QAM Qty: 30 2RF furosemide 80 mg tablet 80 mg PO QAM Qty: 30 3RF metoprolol tartrate 100 mg tablet See Rx Instructions .ROUTE .COMPLEX Qty: 30 0RF Dose Instruction: TAKE ONE TABLET BY MOUTH DAILY Rx Instructions: TAKE ONE TABLET BY MOUTH DAILY Discharge Orders: Discharge Order (Routine); Ordered 05/17/24 Ordered By: Ariel Khan Referrals: MICHELLE MobleyHNP-BC, TOPOGRAPHY TECHNICIAN [Other] - 06/02/24 9:00 am [facility] [Outside] - 05/26/24 9:30 am (Assessment for services with Danica Herrera) Lauren Sher MD [Primary Care Provider] - Discharge Diet: Regular Discharge Activity: Resume usual activity Patient Instructions: Depression (DC), Help Prevent Suicide (DC), Opioid Safety Discharge Attestations NPU Time Spent in Discharge Care*: less than 30 min Specific Discharge Activities: Specific discharge activities: educating patient, discussing with case consultant/social workers/dc planners, documenting/other paperwork and evaluating patient/reviewing data Coding Level of Care Code Acute Code for [facility] Fwd Diagnoses Bipolar depression F31.9 Anxiety F41.9 Verbalizes suicidal thoughts R45.85
[2024-05-17] MEDS: OLANZapine 5 mg ODT PO (16:14)
--- NOTE | 2024-05-18 13:00 | P.NPUDS_ITS ---
Diagnoses at Discharge Discharge Diagnosis (1) Bipolar depression: Status: Acute (2) Anxiety: Status: Acute (3) Verbalizes suicidal thoughts: Status: Resolved Reason for Visit Reason for Visit: 96 Brief History: HPI NPU History of Present Illness Thompson Durbin is a 44 year old male who presented to the emergency department with the following report: Chief Complaint: Psychiatric Symptoms Stated Complaint: 96 History of Present Illness: 44-year-old male brought in on a 96-hour hold. Affidavit and support of application for group home was filled out by Kanika Rubalcava APRN. She was mental health provider for the patient. There is a long affidavit which can be reference. Some highlights of the affidavit include I want to blow my head off. On 05/10/2024. Comment about a coworker ' respondent was an employee at local [employer], to which she recently walked out during his shift to never returned after what he endorsed is a significant event of conflict, to which staff members explain was a simple question answered moment. 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 ' Patient reportedly messaged WHEY DEPARTMENT OPERATOR 14 messages today alone. WHEY DEPARTMENT OPERATOR reports concern for 'his safety, the safety of [id number]'s children in the home, and the safety of others in the community.' Patient has allegedly had multiple substance in his urine drug screen in February as well as an absence of the Suboxone for which she was supposed to be taking and was prescribed. Patient had also reported he stopped his antidepressant and PTSD medication weeks ago. Patient tells me he stopped them just 2 days ago. Patient denies any drug use recently. Affidavit reports recent positive MDMA and cocaine in February. Patient denies alcohol abuse. Patient reports he sent all these messages because he was feeling manic . Patient currently denies suicidal ideation or homicidal ideation. He says that all of these comments were intrusive thoughts but not something he intended to act on. Associated symptoms: Reports depression; Deny auditory hallucinations, visual hallucinations, homicidal ideation or suicidal ideation. He was admitted to the neuropsychiatric unit for definitive treatment of those issues. He has a history of outpatient follow-up at [facility] [place] with primary care but not with psychiatry. No inpatient services here. He reports currently having services with a provider but was not certain of the medications. Resources we have suggest that he is on extended release Effexor 75 mg and other than that takes Suboxone for agonist treatment. He presented today reporting: Chief complaint Admitted to the hospital following a dispute with a doctor over psychiatric medications, leading to police involvement after expressing suicidal thoughts. History of the present complaint The patient reports a history of mental health issues beginning at the age of 20 when first diagnosed with bipolar disorder. During this time, the patient experienced periods of depression characterized by feelings of helplessness, hopelessness, and worthlessness, as well as low mood. The patient also recalls having suicidal thoughts and made an attempt to shoot themselves, which was interrupted by their girlfriend. This incident was described as eye-opening, revealing the consequences of their actions. The patient has experienced other suicidal episodes throughout their life, though the last attempt was at the age of 20. The patient describes a history of manic episodes, particularly during their late teenage years and into their mid-30s. These episodes were marked by periods of feeling on top of the world, invincible, and engaging in uncharacteristic behaviors. The frequency of these episodes has decreased with age. The patient also reports experiencing anxiety, which can manifest as a physical illness, causing symptoms such as nausea and a sensation similar to having consumed too much caffeine. Anxiety can be triggered or appear without warning, and at times, it includes social anxiety, making it difficult to attend public events. The patient has a history of substance use, including methamphetamines, opiates, and alcohol. They began using tobacco products at the age of [age], introduced by their sister, and have since primarily vaped. The patient started drinking alcohol in their early teens and stopped on September 04, 2019, following a DUI incident. Marijuana use began in 1997 but was discontinued after it started causing anxiety. The patient has attended drug rehabilitation programs twice, completing them both, with the last attendance being 2-3 years ago. The patient has been on numerous psychiatric medications throughout their life, including Zoloft and diazepam, which they have cycled through with different providers. The patient expresses frustration with the frequent changes in medication and the impact on their mental health, noting that certain medications, particularly those affecting brain chemistry, have led to suicidal thoughts. The patient is currently taking psychiatric medications, one for a l ittle over a month and another for a few weeks, but cannot recall their names. Family history includes mental health issues on both sides, with addiction issues present on the paternal side. The patient reports no family history of suicide attempts or deaths by suicide. The patient recalls a good childhood with no neglect or abuse and has always lived with their mother. Educationally, the patient did not complete high school, reaching only the 11th grade, and has not obtained a GED or any additional training. The patient identifies as heterosexual and has had a long-term relationship lasting 15 years. Currently, the patient is not working and lives with a [id number], sharing bills and responsibilities. Mental health history Diagnosed with bipolar disorder at 20 years old. Experienced periods of depression, feelings of helplessness, hopelessness, and worthlessness, with suicidal ideation at that time. Attempted suicide at 20 by attempting to shoot self, but was stopped by a girlfriend. Has been on various psychiatric medications over the years, including Zoloft and diazepam, with frequent changes in medication due to provider preferences. Reports that medications affecting brain chemistry induce suicidal thoughts. Hospitalized once in a psychiatric facility following the of mother in 2016. Has a history of anxiety, described as a physical illness with symptoms like nausea and jitteriness. Experienced manic episodes more frequently in younger years, with decreased frequency by mid-30s. No history of self-injurious behavior. Reports intrusive thoughts but no compulsive behaviors. Family history of mental health issues on both maternal and paternal sides. No family history of suicide attempts or deaths by suicide. Social history Currently unemployed and living with a [id number] as a roommate, sharing bills. Previously worked at [employer] and [employer] simultaneously for about 10 years. Has a dog, approximately four years old, described as brindle, white, and black. Uses tobacco, primarily vaping, and started using nicotine products at age [age]. Stopped drinking alcohol on September 04, 2019, after receiving a DUI. Previously used cannabis, methamphetamines, and opiates, with the last rehab completed 2-3 years ago. No current alcohol or drug use. Did not graduate high school and has not obtained a GED. Identifies as heterosexual and has had a [id number] relationship. No biological children. No service. No caodaism belief system mentioned. Hospital Course Hospital Course He slowly acclimated to the individual, group and milieu therapies. He presented after making threats and suicidal statements after a conflict with his doctor about his medications which he reports he was just frustrated about how things were going with his medications. He very much downplayed his issues with addiction but the likelihood of concerns was raised by his longtime treatment with benzodiazepines and also being on buprenorphine and often without naloxone. He presented to the hospital and we restarted his medications. He reports that he had not had access to them somehow. He had no difficulty with the medications. His medications being restarted, abstinence from substances as well as the treatment milieu had a positive response. He worked with the social work team to establish appropriate follow-up services and was connected to appropriate community resources. He was able to contract for safety outside of the hospital prior to discharge. During the hospitalization, patient had routine laboratory studies which were within normal limits except for few outliers. Additionally there was a general medical evaluation which was also within normal limits and revealed no new acute processes. At the time of discharge, he denied psychosis or lethality. Mood and anxiety were well managed. Patient endorsed a plan to avoid all drugs of abuse, and agreed to follow-up with the aftercare recommendations of the treatment team. Patient was evaluated and deemed to be absent credible lethality, and achieved maximum benefit from inpatient hospitalization, so he was discharged. Involuntary Hold Information Hold Status: Legal Status: 96 Hour Hold Date/Time Hold Expires: 05/18/2024 @ 1620 Mental Status Exam MSE Comments: This is obese white male in hospital scrubs with improved grooming and eye contact. No abnormal movements except for mild psychomotor retardation. Cooperative with exam in no acute distress. Speech was decreased rate and volume. Mood described as better, affect congruent. Thought process organized. Thought content: Patient denied suicidal or homicidal ideation, there were no delusions noted but reports resolving paranoia, he denied current auditory or visual hallucinations. Attention and concentration were improving and intact and memory was mostly reliable but no more formally tested. He is alert and oriented times 3. Insight, judgment and impulse control were limited, but improving. Discharge Data Studies Completed and Pending: Laboratory Results WBC 5.91 10^3/uL (3.2 9-11.43) 05/12/24 16:28 RBC 4.64 10^6/uL (3.8 5-5.65) 05/12/24 16:28 Hgb 14.40 g/dL (11.27 -16.99) 05/12/24 16:28 Hct 42.9 % (37-53) 05/12/24 16: MCV 92.5 fl (82-101) 05/12/24 16: MCH 31.0 pg (27-33) 05/12/24 16: MCHC 33.6 g/dL (30-55) 05/12/24 16: RDW 12.3 % (12.1-15.1 ) 05/12/24 16: Plt Count 169 10^3/cmm (157 -399) 05/12/24 16: MPV 10.6 fL (7.4-10.4 ) H 05/12/24 16: Neut % (Auto) 51.7 % 05/12/24 16: Lymph % (Auto) 28.6 % 05/12/24 16: Woodward % (Auto) 6.9 % 05/12/24 16: Eos % (Auto) 12.0 % 05/12/24 16: Baso % (Auto) 0.5 % 05/12/24 16: Neut # (Auto) 3.05 10^3/uL (1.8 -7.7) 05/12/24 16: Lymph # (Auto) 1.7 10^3/uL (0.8- 4.8) 05/12/24 16: Woodward # (Auto) 0.4 10^3/uL (0.2- 0.9) 05/12/24 16: Eos # (Auto) 0.7 10^3/uL (0.0- 0.8) 05/12/24: Baso # (Auto) 0.0 10^3/uL (0.0- 0.1) 05/12/24 16: Nucleated RBC % (a uto) 0 % 05/12/24 16: Nucleated RBCs # 0.0 /100WBC 05/12/24 16: Sodium 142 mmol/L (136-1 45) 05/12/24 16: Potassium 3.7 mmol/L (3.5-5 .1) 05/12/24 16: Chloride 103 mmol/L (98-10 7) 05/12/24 16: Carbon Dioxide 28 mmol/L (22-29) 05/12/24 16: Anion Gap 14.7 (5-19) 05/12/24 16: BUN 7 mg/dL (6-20) 05/12/24 16:28 Creatinine 0.9 mg/dL (0.7-1. 2) 05/12/24 16: GFR Calculation 92.1 mL/min (90-1 30) 05/12/24 16:28 Glucose 136 mg/dL (65-115 ) H 05/12/24 16:28 Calculated Osmolal ity 294 mOsm/kg (285- 295) 05/12/24 16:28 Calcium 8.5 mg/dL (8.5-10 .5) 05/12/24 16: Total Bilirubin 0.3 mg/dL (0.15-1 .2) 05/12/24 16: AST 20 U/L (0-40) 05/12/24 16: ALT 26 U/L (0-41) 05/12/24 16: Alkaline Phosphata se 68 U/L (40-130) 05/12/24 16: Total Protein 7.2 g/dL (6.6-8.7 ) 05/12/24 16: Albumin 4.1 g/dL (3.5-5.2 ) 05/12/24 16: Globulin 3.1 g/dL (1.3-4.6 ) 05/12/24 16: TSH 1.44 uIU/mL (0.27 -4.20) 05/12/24 16:28 Urine Color Yellow (Yellow) 05/12/24 16:22 Urine Appearance Clear (CLEAR) 05/12/24 16:22 Urine pH 6.5 (5-7) 05/12/24 16:22 Ur Specific Gravit y 1.005 (1.005-1.0 30) 05/12/24 16:22 Urine Protein Neg (Negative) 05/12/24 16:22 Urine Glucose (UA) Norm (Normal) 05/12/24 16:22 Urine Ketones Negative (Negati ve) 05/12/24 16:22 Urine Blood Trace (Negative) H 05/12/24 16:22 Urine Nitrate Negative (Negati ve) 05/12/24 16:22 Urine Bilirubin Neg (Negative) 05/12/24 16:22 Urine Urobilinogen Neg mg/dL (Negati ve) 05/12/24 16:22 Ur Leukocyte Regina ase Negative (Negati ve) 05/12/24 16:22 Urine RBC 0-2 /hpf (0-2) 05/12/24 16:22 Urine WBC 0-5 /hpf (0-5) 05/12/24 16:22 Ur Squamous Epith Cells 0-5 /hpf (0-5) 05/12/24 16:22 Amorphous Sediment Not Reportable 05/12/24 16:22 Urine Bacteria None seen /hpf (N ONE) 05/12/24 16:22 Hyaline Casts 0-4 /lpf H 05/12/24 16:22 Salicylates < 0.3 mg/dL (3-10 ) L 05/12/24 16:28 Urine Opiates Scre en Negative ng/mL (N egative) 05/12/24 16:22 Acetaminophen < 5.0 ug/mL (10-3 0) L 05/12/24 16:28 Ur Barbiturates Sc reen Negative ng/mL (N egative) 05/12/24 16:22 Ur Phencyclidine S crn Negative ng/mL (N egative) 05/12/24 16:22 Ur Amphetamines Sc reen Negative ng/mL (N egative) 05/12/24 16:22 U Benzodiazepines Scrn Positive ng/mL (N egative) H 05/12/24 16:22 Urine Cocaine Scre en Negative ng/mL (N egative) 05/12/24 16:22 U Marijuana (THC) Screen Negative ng/mL (N egative) 05/12/24 16:22 Ethyl Alcohol < 10 mg/dL (0-10) 05/12/24 16:28 Vitals: Last Vital Signs Temp 97.8 F 05/17/24 13:04 Pulse 68 05/17/24 13:04 Resp 17 05/17/24 13:04 BP 121/97 05/17/24 13:04 Pulse Ox 95 05/17/24 13:04 O2 Del Method Room Air 05/17/24 06:00 O2 Flow Rate 92 05/16/24 06:00 Discharge Plan Discharge Patient Disposition: Home Condition: Stable Prescriptions: New trazodone 50 mg Tablet 50 mg PO BEDTIME PRN (Reason: Sleep) Qty: 30 1RF hydroxyzine pamoate 25 mg Capsule 50 mg PO Q6H PRN (Reason: Anxiety) 30 Days Qty: 120 1RF Continued omeprazole 40 mg capsule,delayed release(DR/EC) 40 mg PO DAILY Qty: 30 5RF testosterone cypionate [Depo-Testosterone] 200 mg/mL oil 200 mg SUBCUT .monthly Qty: 1 3RF buprenorphine HCl 8 mg tablet, sublingual 8 mg sublingual 2XD venlafaxine [Effexor XR] 75 mg capsule,extended release 24hr 75 mg PO QAM Qty: 30 2RF furosemide 80 mg tablet 80 mg PO QAM Qty: 30 3RF metoprolol tartrate 100 mg tablet See Rx Instructions .ROUTE .COMPLEX Qty: 30 0RF Dose Instruction: TAKE ONE TABLET BY MOUTH DAILY Rx Instructions: TAKE ONE TABLET BY MOUTH DAILY Discharge Orders: Discharge Order (Routine); Ordered 05/17/24 Ordered By: Ariel Khan Referrals: LUDWIN Mobley-BC, WHEY DEPARTMENT OPERATOR [Other] - 06/02/24 9:00 am [facility] [Outside] - 05/26/24 9:30 am (Assessment for services with Danica eHrrera) Lauren Sher MD [Primary Care Provider] - Discharge Diet: Regular Discharge Activity: Resume usual activity Patient Instructions: Depression (DC), Help Prevent Suicide (DC), Opioid Safety Discharge Attestations NPU Time Spent in Discharge Care*: less than 30 min Specific Discharge Activities: Specific discharge activities: educating patient, discussing with director of casework/social workers/dc planners, documenting/other paperwork and evaluating patient/reviewing data Coding Level of Care Code Acute Code for g Fwd Diagnoses Bipolar depression F31.9 Anxiety F41.9 Verbalizes suicidal thoughts R45.853
== END 2024-05-17 16:50 | disposition home or self-care (01) | DRG 885 ==
LOC: ER 17:47 → NP 17:52
PROVIDERS: Admitting Provider Psychiatry & Neurology Psychiatry; Emergency Provider Emergency Medicine; PCP Family Medicine; Visit Provider Psychiatry & Neurology Psychiatry
DX: F31.9 Bipolar disorder, unspecified (principal); R45.851 Suicidal ideations; F41.9 Anxiety disorder, unspecified; F10.21 Alcohol dependence, in remission; E66.9 Obesity, unspecified; Z68.39 Body mass index [BMI] 39.0-39.9, adult
CPT/HCPCS: 36415; 80053; 80306; 80307; 81001; 84443; 85025; 93005; 97150; 97165; 99285; J0573; J9999

== ENCOUNTER 2024-09-14 12:24 | Emergency (ER) | payer OTHER, BC, MEDICAID, SELFPAY ==
[2024-09-14 12:25] VITALS: BP 123/78; PULSE 74; RESP 20; TEMP 36.8; O2SAT 94
--- NOTE | 2024-09-14 12:28 | XR_ITS ---
WS: [id number] Portable AP upright chest, 09/14/2024 Clinical Data: chest pain Comparison: Two-view chest, 09/15/2021 Findings: No nodules, masses or effusions are seen. The heart is normal. The pulmonary vascularity is not increased. No pneumonia or pneumothorax is seen. XR/XR chest 1V portable [id number] Impression: Negative chest.
--- NOTE | 2024-09-14 12:29 | ECG_ITS ---
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1980 Requested By: Teofilo Snowden Order Number: [id number] Reading MD: PASCUAL GARCIA Measurements Intervals [place] Rate: 71 P: 29 [place]: 181 QRS: 15 QRSD: 86 T: 33 QT: 346 QTc: 378 Interpretive Statements SINUS RHYTHM LOW QRS VOLTAGE IN PRECORDIAL LEADS [QRS DEFLECTION < 1.0 mV IN CHEST LEADS] POSSIBLE RIGHT VENTRICULAR CONDUCTION DELAY [RSR (QR) IN V1/V2] Compared to ECG 05/12/2024 16:21:09 Myocardial infarct finding no longer present Electronically Signed On 09-14-2024 22:18:11 CDT by PASCUAL GARCIA [email or web address]
--- NOTE | 2024-09-14 12:36 | W.ED.CHESTPA ---
HPI - Chest Pain General: Chief Complaint: Chest Pain Stated Complaint: cp Time Seen by Provider: 09/14/24 12:27 History of Present Illness: 44-year-old male presents emergency room with complaint of chest pain. He has had chest pain intermittently for the last 4 days to little better if he presses or massages on the mid upper portion of his sternum worse if he takes a deep breath he states he is also noticed that he is able to calm himself down it gets better when he has anxiety gets worse has not had any fever sweats chills no productive cough. Patient does use nicotine products he is not diabetic no previous history of coronary artery disease Associated symptoms: Reports dyspnea; Deny abdominal pain or fever(s) Related Data Home Medications ?Medication ?Instructions ?Recorded ?Confirmed buprenorphine HCl 8 mg sublingual 8 mg sublingual 2XD 08/31/22 09/14/24 tablet Previous Rx's ?Medication ?Instructions ?Recorded testosterone cypionate 200 mg/mL 200 mg SUBCUT .monthly #1 mL 05/28/23 intramuscular oil (Depo-Testosterone) metoprolol tartrate 100 mg tablet See Rx Instructions .Route 02/02/24 .COMPLEX #30 tabs hydroxyzine pamoate 25 mg capsule 50 mg (2 x 25 mg) PO Q6H PRN 05/17/24 Anxiety 30 days #120 caps trazodone 50 mg tablet 50 mg PO BEDTIME PRN Sleep #30 tabs 05/17/24 hydroxyzine HCl 25 mg tablet 25 mg PO Q6H PRN anxiety #14 tabs 09/14/24 lisinopril 10 mg tablet 10 mg PO DAILY #30 tabs 09/14/24 pantoprazole 40 mg tablet,delayed 40 mg PO DAILY 4 weeks #30 tabs 09/14/24 release (Protonix) Allergies Allergy/AdvReac Type Severity Reaction Status Date / Time bupropion (From Wellbutrin) Allergy Severe ADR-Seizure Verified 09/14/24 09:51 naloxone Allergy Unknown Verified 09/14/24 12:32 Review of Systems Const: Denies: fever(s) or chills Card: Reports: chest pain Resp: Reports: dyspnea GI: Denies: abdominal pain : Denies: dysuria, urinary frequency or urinary urgency Musc: Denies: neck pain or back pain Skin/Breast: Denies: rash PFSH ED PFSH: Medical History History of asthma Surgical History Hx of hand surgery left Social History Smoking and tobacco/nicotine status: current every day tobacco/nicotine user (Vape) Second hand smoke exposure: No Alcohol intake: never Substance/Drug Use: never Adopted: No Caregiver/support person: No Lives independently: Yes Household members: family Housing: House Marital status: Single Number of children: 0 Highest education level completed: 9th Grade service: No Current occupational status: employed Physical Exam Const: COMMON NORMALS: no acute distress GENERAL APPEARANCE: cooperative and comfortable ORIENTATION/CONSCIOUSNESS: Yes awake, Yes oriented to person, Yes oriented to place and Yes oriented to time HENMT: COMMON NORMALS: normocephalic, atraumatic and hearing grossly normal bilaterally HEAD & SCALP: normocephalic and atraumatic Resp: COMMON NORMALS: normal respiratory effort, No retractions, No use of accessory muscles and clear to auscultation bilaterally AUSCULTATION: clear to auscultation bilaterally Cardio: COMMON NORMALS: regular rate, regular rhythm and No murmurs present (Cardio) RATE: regular rate RHYTHM: regular rhythm GI: COMMON NORMALS: Soft to palpation and No hepatosplenomegaly present AUSCULTATION: Yes normoactive bowel sounds PALPATION: Yes Soft to palpation, No Tenderness to palpation present (GI), No Guarding due to palpation present (GI) and Yes No hepatosplenomegaly present Extremity: COMMON NORMALS: normal to inspection, capillary refill normal, no clubbing, cyanosis or edema, no calf tenderness and no pedal edema Neuro: SENSORIUM/ORIENTATION: Yes oriented to person, Yes oriented to place and Yes oriented to time Skin: COMMON NORMALS: no rashes or lesions noted GENERAL SKIN EXAM: no rashes or lesions noted Course Vital Signs: Vital signs: Vital Signs Temperature 98.3 F 09/14/24 12:25 Pulse Rate 74 09/14/24 12:25 Respiratory Rate 20 H 09/14/24 12:25 Blood Pressure 123/78 09/14/24 12:25 Pulse Oximetry 94 09/14/24 12:25 MDM - Chest Pain Medical Decision Making Cardiac enzymes undetectable. EKG does not show any acute changes. Will discharge patient home set him up for an outpatient stress test. Return for us for problems. Lab Data 09/14/24 13:04 09/14/24 13:04 Radiology Impressions Chest X-Ray 09/14/24 12:28 Impression: Negative chest. Laboratory Results WBC 6.89 10^3/uL (3.29-11.43) 09/14/24 13:04 RBC 4.50 10^6/uL (3.85-5.65) 09/14/24 13:04 Hgb 14.30 g/dL (11.27-16.99) 09/14/24 13:04 Hct 42.2 % (37-53) 09/14/24 13:04 MCV 93.8 fl (82-101) 09/14/24 13:04 MCH 31.8 pg (27-33) 09/14/24 13:04 MCHC 33.9 g/dL (30-55) 09/14/24 13:04 RDW 12.3 % (12.1-15.1) 09/14/24 13:04 Plt Count 147 10^3/cmm (157-399) L 09/14/24 13:04 MPV 10.4 fL (7.4-10.4) 09/14/24 13:04 Neut % (Auto) 69.2 % 09/14/24 13:04 Lymph % (Auto) 18.6 % 09/14/24 13:04 [place] % (Auto) 7.1 % 09/14/24 13:04 Eos % (Auto) 4.4 % 09/14/24 13:04 Baso % (Auto) 0.6 % 09/14/24 13:04 Neut # (Auto) 4.77 10^3/uL (1.8-7.7) 09/14/24 13:04 Lymph # (Auto) 1.3 10^3/uL (0.8-4.8) 09/14/24 13:04 [place] # (Auto) 0.5 10^3/uL (0.2-0.9) 09/14/24 13:04 Eos # (Auto) 0.3 10^3/uL (0.0-0.8) 09/14/24 13:04 Baso # (Auto) 0.0 10^3/uL (0.0-0.1) 09/14/24 13:04 Nucleated RBC % (auto) 0 % 09/14/24 13:04 Nucleated RBCs # 0.0 /100WBC 09/14/24 13:04 Sodium 143 mmol/L (136-145) 09/14/24 13:04 Potassium 4.3 mmol/L (3.5-5.1) 09/14/24 13:04 Chloride 102 mmol/L (98-107) 09/14/24 13:04 Carbon Dioxide 31 mmol/L (22-29) H 09/14/24 13:04 Anion Gap 14.3 (5-19) 09/14/24 13:04 BUN 7 mg/dL (6-20) 09/14/24 13:04 Creatinine 0.8 mg/dL (0.7-1.2) 09/14/24 13:04 GFR Calculation 105.5 mL/min (90-130) 09/14/24 13:04 Glucose 130 mg/dL (65-115) H 09/14/24 13:04 Calculated Osmolality 296 mOsm/kg (285-295) H 09/14/24 13:04 Calcium 8.5 mg/dL (8.5-10.5) 09/14/24 13:04 Total Bilirubin 0.4 mg/dL (0.15-1.2) 09/14/24 13:04 AST 34 U/L (0-40) 09/14/24 13:04 ALT 68 U/L (0-41) H 09/14/24 13:04 Alkaline Phosphatase 69 U/L (40-130) 09/14/24 13:04 Troponin T Baseline < 6 ng/L (0-15) 09/14/24 13:04 Troponin T 120 Minute < 6.0 ng/L (0-15) 09/14/24 15:04 Delta Troponin T 0 ABS# (0-10) 09/14/24 15:04 Total Protein 6.4 g/dL (6.6-8.7) L 09/14/24 13:04 Albumin 4.1 g/dL (3.5-5.2) 09/14/24 13:04 Globulin 2.3 g/dL (1.3-4.6) 09/14/24 13:04 All radiology interpretation(s) finalized by discharge EKG Data EKG 1: Interpretation: EKG 09/14/2024 12:29 PM. Normal sinus rhythm rate 81 CO interval 181 QTc 369 isolated T wave inversion in V1 and aVR. Otherwise no significant abnormality no acute ST changes. Compared to EKG 05/12/2024 no significant changes. EKG 2: Interpretation: EKG 09/14/2024 1448 sinus rhythm rate of 61 CO interval 181 QTc [address]. No acute ST elevation. No T wave inversion. Discharge Plan Discharge Patient Disposition: Home Clinical Impression: Atypical chest pain, Anxiety Condition: Stable Prescriptions: New pantoprazole [Protonix] 40 mg tablet,delayed release (DR/EC) 40 mg PO DAILY 28 Days Qty: 30 0RF hydroxyzine HCl 25 mg tablet 25 mg PO Q6H PRN (Reason: anxiety) Qty: 14 0RF Discontinued omeprazole 40 mg capsule,delayed release(DR/EC) 40 mg PO DAILY Qty: 30 5RF No Action testosterone cypionate [Depo-Testosterone] 200 mg/mL oil 200 mg SUBCUT .monthly Qty: 1 3RF buprenorphine HCl 8 mg tablet, sublingual 8 mg sublingual 2XD lisinopril 10 mg tablet 10 mg PO DAILY Qty: 30 0RF metoprolol tartrate 100 mg tablet See Rx Instructions .ROUTE .COMPLEX Qty: 30 0RF Dose Instruction: TAKE ONE TABLET BY MOUTH DAILY Rx Instructions: TAKE ONE TABLET BY MOUTH DAILY trazodone 50 mg Tablet 50 mg PO BEDTIME PRN (Reason: Sleep) Qty: 30 1RF hydroxyzine pamoate 25 mg Capsule 50 mg PO Q6H PRN (Reason: Anxiety) 30 Days Qty: 120 1RF Discharge Orders: Discharge ED (Routine); Ordered 09/14/24 Ordered By: Teofilo Henao Referrals: Susan Gamez FNP-C [Primary Care Provider, Family Practice] Discharge Diet: Usual diet Discharge Activity: Resume usual activity Patient Instructions: Opioid Safety, Pain Management, Patient Portal & [place] Instructions Activity Restrictions/Additional Instructions: Thank you for choosing [facility] for your healthcare needs today. It is very important that you follow up as instructed or that you return to the Emergency Department should you have concerns or if your condition changes or worsens in any way. You are seen in the emergency room with complaints of shortness of chest discomfort. You reported having had symptoms for about 4 days. Your symptoms were atypical for acute coronary syndrome. Your cardiac enzymes were undetectable your EKGs did not show any acute changes. Will discharge home have you stop the omeprazole and instead take pantoprazole 40 mg once a day use hydroxyzine as needed. Print Language: Peruvian Coding Level of Care Code ED Helicopter Pilot Instructor for Estella Spangler
--- NOTE | 2024-09-14 12:40 | PC.NURSE ---
Addendum entered by Tenisha Saucedo RN 09/14/24 12:41: RETURNED (3) ASPIRIN 81MG TO [facility]. Original Note: PULLED (4) ASPIRIN 81MG BUT PATIENT TOOK 3 PRIOR TO ARRIVAL. PROVIDER INFORMED AND ORDER CHANGED TO GIVE (1) ASPIRIN 81MG NOW.
[2024-09-14 13:15] LABS: Hematocrit 42.2 % (37-53); Hemoglobin 14.30 g/dL (11.27-16.99); Mean Corpuscular HGB Conc 33.9 g/dL (30-55); Mean Corpuscular Hemoglobin 31.8 pg (27-33); Mean Corpuscular Volume 93.8 fl (82-101); Nucleated Red Blood Cells % 0 %; Platelet Count 147 10^3/cmm (157-399); Red Blood Count 4.50 10^6/uL (3.85-5.65); White Blood Count 6.89 10^3/uL (3.29-11.43)
[2024-09-14 13:30] LABS: Alanine Aminotransferase 68 U/L (0-41); Albumin Level 4.1 g/dL (3.5-5.2); Alkaline Phosphatase 69 U/L (40-130); Anion Gap 14.3 (5-19); Aspartate Amino Transferase 34 U/L (0-40); Blood Urea Nitrogen 7 mg/dL (6-20); Calcium 8.5 mg/dL (8.5-10.5); Carbon Dioxide 31 mmol/L (22-29); Chloride 102 mmol/L (98-107); Creatinine Clr Calc Pharmacy 151.6097; Globulin 2.3 g/dL (1.3-4.6); Glucose 130 mg/dL (65-115); Osmolality Calculated 296 mOsm/kg (285-295); Potassium 4.3 mmol/L (3.5-5.1); Sodium 143 mmol/L (136-145); Total Protein 6.4 g/dL (6.6-8.7)
[2024-09-14 13:31] LABS: Troponin(5th) Baseline < 6 ng/L (0-15)
--- NOTE | 2024-09-14 14:28 | ECG_ITS ---
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: : 1980 Requested By: Teofilo Snowden Order Number: [id number] Reading MD: PASCUAL GARCIA Measurements Intervals [place] Rate: 61 P: 21 CA: 181 QRS: 14 QRSD: 90 T: 31 QT: 362 QTc: 366 Interpretive Statements SINUS RHYTHM LOW QRS VOLTAGE IN PRECORDIAL LEADS [QRS DEFLECTION < 1.0 mV IN CHEST LEADS] POSSIBLE RIGHT VENTRICULAR CONDUCTION DELAY [RSR (QR) IN V1/V2] NONSPECIFIC ST ELEVATION [0.05+ mV ST ELEVATION] Compared to ECG 09/14/2024 12:29:43 ST (T wave) deviation now present Electronically Signed On 09-14-2024 22:21:41 CDT by PASCUAL GARCIA [email or web address]
[2024-09-14 15:44] LABS: Troponin 5 2HR < 6.0 ng/L (0-15); Troponin 5 2HR Delta 0 ABS# (0-10)
== END 2024-09-14 16:04 | disposition home or self-care (01) ==
PROVIDERS: Emergency Provider Family Medicine; PCP Nurse Practitioner Family
DX: R07.89 Other chest pain (principal); F41.9 Anxiety disorder, unspecified; F17.290 Nicotine dependence, other tobacco product, uncomplicated
CPT/HCPCS: 36415; 71045; 80053; 84484; 85025; 93005; 99285; J9999